=== PATIENT | female | born 1985 | race Caucasian/White ===

== ENCOUNTER 2020-12-16 16:26 | Emergency (ER) | payer OTHER ==
[~2020-12-16] VITALS: Ht 154.9 cm; Wt 81.7 kg
[~2020-12-16 16:26] MED LIST: AMOX500 PO; CEPH500 PO; CLOT1TC TOP; DOXY100 PO; FLUC100 PO; HYDACE5; HYDACE5 PO; HYDACE5325 PO; IBUP800; LABE100 PO; MEDR150I; NAPR220 PO; NEOPOLHYD OP; OXYACE5T PO; PENVK500 PO; PROM25 PO; RXHYD5325 PO; RXHYDACE PO; SULTRIDS PO; TOBR.3OPSO LEFTEYE; Ultram50 MG PO; Veetids 500500 MG PO
[2020-12-16] MEDS ORDERED: CEPH500 PO (16:45)
[2020-12-16] MEDS ORDERED: Bactrim Ds Tab1 EACH PO (16:45)
== END 2020-12-16 16:46 | disposition home or self-care (01) ==
LOC: ER 16:26
DX: L03.113 Cellulitis of right upper limb (principal); F17.200 Nicotine dependence, unspecified, uncomplicated; Z88.5 Allergy status to narcotic agent; Z88.6 Allergy status to analgesic agent; Z88.1 Allergy status to other antibiotic agents
CPT/HCPCS: 99282